=== PATIENT | female | born 1975 | race Caucasian/White ===

== ENCOUNTER 2021-03-18 23:53 | Emergency (ER) | payer OTHER ==
[2021-03-19 00:03] VITALS: BP 141/96; PULSE 102; TEMP 99.2; BMI 24.1
[2021-03-19] MEDS ORDERED: IBUPROFEN 400 MG TABLET (FP) PO ONE ×2 (00:03→00:04)
== END 2021-03-19 00:28 | disposition home or self-care (01) ==
LOC: FER 23:53
DX: S40.911A Unspecified superficial injury of right shoulder, initial encounter (principal); S00.91XA Abrasion of unspecified part of head, initial encounter; S80.01XA Contusion of right knee, initial encounter; W01.0XXA Fall on same level from slipping, tripping and stumbling without subsequent striking against object, initial encounter
CPT/HCPCS: 73030-TC-RT-FY; 99283-25

== ENCOUNTER 2023-03-09 08:57 | Emergency (ER) | payer OTHER ==
[2023-03-09] MEDS ORDERED: CYCLOBENZAPRINE HCL 10 MG TABLET (FP) PO ONE (09:19)
[2023-03-09] MEDS ORDERED: KETOROLAC TROMETHAMINE 60 MG/2 ML VIAL IM ONE (09:19)
[2023-03-09] MEDS ORDERED: CYCLOBENZAPRINE HCL 5 MG TABLET ONE (09:25)
[2023-03-09] MEDS ORDERED: KETOROLAC TROMETHAMINE 60 MG/2 ML VIAL ONE (09:25)
[2023-03-09 09:37] VITALS: BP 175/94; PULSE 80; RESP 17; TEMP 98.3; BMI 24.1
== END 2023-03-09 10:13 | disposition home or self-care (01) ==
LOC: FER 08:57
PROC: 3E0233Z Introduction of Anti-inflammatory into Muscle, Percutaneous Approach (ICD-10-PCS; principal; 2023-03-09)
DX: S16.1XXA Strain of muscle, fascia and tendon at neck level, initial encounter (principal); V89.2XXA Person injured in unspecified motor-vehicle accident, traffic, initial encounter
CPT/HCPCS: 72050-TC-FY; 99284-25